=== PATIENT | female | born 1955 | race Caucasian/White ===

== ENCOUNTER → 2024-11-10 | Outpatient (REF) | payer MEDICARE, BC ==
[2024-11-13 13:47] LABS: HPV APTIMA Not Detected (Not Detected)
== END ==
LOC: M SFHCWAGY 10:26
PROVIDERS: ATTEND Nurse Practitioner Family
DX: Z12.4 Encounter for screening for malignant neoplasm of cervix (principal); N95.2 Postmenopausal atrophic vaginitis
CPT/HCPCS: 87624; G0123